=== PATIENT | male | born 1995 | race Two or more races ===

== ENCOUNTER 2019-01-30 15:58 | Emergency (ER) | payer SELFPAY ==
[~2019-01-30] VITALS: Ht 180.3 cm; Wt 102.8 kg
[2019-01-30] MEDS ORDERED: KETOROLAC 60 MG/2 ML ONE (16:42)
[2019-01-30 16:59] LABS: RAPID INFLUENZA A Negative (Negative); RAPID INFLUENZA B POSITIVE (Negative)
[2019-01-30] MEDS ORDERED: KETOROLAC 60 MG/2 ML IM ONE (17:00)
[2019-01-30 18:10] VITALS: BP 124/80
== END 2019-01-30 18:30 | disposition home or self-care (01) ==
LOC: ED 18:05
DX: R07.89 Other chest pain (principal); J10.1 Influenza due to other identified influenza virus with other respiratory manifestations
CPT/HCPCS: 71046; 87400; 93005; 96372; 99284; J1885